=== PATIENT | female | born 1940 | race Caucasian/White ===

== ENCOUNTER 2016-11-12 16:20 | Emergency (ER) | payer MEDICARE, BC ==
--- NOTE | 2016-11-12 16:43 | Emergency Department Record ---
History of Present Illness - General Source: Patient Mode of Arrival: Wheelchair Limitations: No limitations - History of Present Illness Initial Comments: The patient is here due to a 4 hour hx of upper abdominal pain. The pain is sharp and stabbing and was associated with one episode of vomiting. There was no blood in the vomit and no recent black or bloody stools. The pain did not radiate to the back. The patient denies any hx of similar issues and her only past abdominal surgery is abdominal wall hernia surgery. 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 She was supposed to get a transfusion today here but due to antibodies in her blood she will not be able to receive any until tomorrow. MD Complaint: Abdominal pain Onset/Timin -: Hour(s) Location: Epigastric, LUQ, RUQ Severity: Moderate Quality: Sharp Consistency: Constant Improves With: Nothing Worsens With: Nothing Associated Symptoms: Denies other symptoms <Henry Segal - Last Filed: 11/12/16 19:13> <PABLITO TERAN - Last Filed: 11/12/16 19:33> - General Chief Complaint: Abdominal Pain Stated Complaint: ABD PAIN Time Seen by Provider: 11/12/16 16:42 - Related Data Home Medications Medication Instructions Recorded Confirmed Last Taken No Home Med [NO HOME MEDS] 10/03/16 11/12/16 Unknown Allergies Allergy/AdvReac Type Severity Reaction Status Date / Time meperidine HCl [From Demerol] Allergy HIVES Verified 09/04/16 11:18 mometasone furoate Allergy RASH Verified 09/04/16 11:18 [From Nasonex] Travel Screening - Travel/Exposure Within Last 30 Days Have you traveled within the last 30 days?: No - Travel/Exposure Within Last Year Have you traveled outside the [place] in the last year?: No - Additonal Travel Details Have you been exposed to anyone with a communicable illness?: No - Travel Symptoms Symptom Screening: None <Henry Segal - Last Filed: 11/12/16 19:13> Review of Systems Constitutional: Denies: Chills, Fever Eyes: Denies: Eye discharge ENT: Denies: Congestion Respiratory: Denies: Cough, Dyspnea <Henry Segal - Last Filed: 11/12/16 19:13> Past Medical History - SOCIAL HISTORY Smoking Status: Never smoker Alcohol Use: None Drug Use: None - RESPIRATORY Hx Respiratory Disorders: Yes Comment:: MDS - CARDIOVASCULAR Hx Cardio Disorders: No - NEURO Hx Neuro Disorders: No - GI Hx GI Disorders: No - Hx Genitourinary Disorders: No - ENDOCRINE Hx Endocrine Disorders: No - MUSCULOSKELETAL Hx Musculoskeletal Disorders: No - PSYCH Hx Psych Problems: No - HEMATOLOGY/ONCOLOGY Hx Hematology/Oncology Disorders: Yes Hx Anemia: Yes <Henry Segal - Last Filed: 11/12/16 19:13> Family Medical History Any Significant Family History?: Yes Family Hx Comment (NOT TO BE USED IN PLACE OF ITEMS BELOW): Mom had ALS Hx Cancer: Father, Children Hx Resp Disorders: Brother/Sister <Henry Segal - Last Filed: 11/12/16 19:13> Physical Exam - General General Appearance: Alert, Oriented x3, Cooperative, No acute distress - Head Head exam: Atraumatic, Normocephalic, Normal inspection - Eye Eye exam: Normal appearance, PERRL - Neck Neck exam: Normal inspection, Full ROM. negative: Tenderness - Respiratory Respiratory exam: Normal lung sounds bilaterally. negative: Respiratory distress - Cardiovascular Cardiovascular Exam: Regular rate, Normal rhythm, Normal heart sounds - GI/Abdominal GI/Abdominal exam: Soft, Tenderness (There is mild upper abominal tenderness but no guarding, rebound or pulsatile masses.). negative: Guarding, Rebound, Rigid - Extremities Extremities exam: Pedal edema - Neurological Neurological exam: Alert, Oriented X3. negative: Motor sensory deficit - Skin Skin exam: Pallor (chronic.) <Henyr Segal - Last Filed: 11/12/16 19:13> Course Vital Signs 11/12/16 16:30 Temperature 97.9 F Pulse Rate 94 H Respiratory 18 Rate Blood Pressure 155/78 Pulse Ox 97 - Reevaluation(s) Reevaluation #1: The patient is doing very well. She denies any new issues and denies any CP, SOB , or LULÚ. Her cardiac workup was normal with negative cardiac enzymes and an EKG that was WNL's. 11/12/16 18:03 Reevaluation #2: The patient is still having some upper abdominal pain. She denies any CP or SOB. While waiting for the CT results which are essentially neg for any acute process she went into New Onset A fib with RVR. The patient states she has had a hx of palpitations recently but no one ever called it Afib. Due to the multiple issues with her MDS and Afib and anemia she will be transferred [place] [facility] [place] more [place] tranfusion and cardiology consultation. 11/12/16 19:05 Reevaluation #3: 2nd EKG: rapid afib in 160's, Neg ischemic changes. 11/12/16 19:08 11/12/16 19:14 Reevaluation #4: The patient is doing very well at this time. I did discuss the case with Dr. Monique at [facility] and he does accept the patient in transfer. He will expedite the transfusion and obtain a Cardiology consultation due to the new onset Afib with RVR. 11/12/16 19:14 <Henry Segal - Last Filed: 11/12/16 19:13> Vital Signs 11/12/16 11/12/16 16:30 18:09 Temperature 97.9 F Pulse Rate 94 H Pulse Rate [ 89 Pulse Ox Probe] Respiratory 18 18 Rate Blood Pressure 155/78 Blood Pressure 155/75 [Right Arm] Pulse Ox 97 97 - Reevaluation(s) Reevaluation #1: Pt seen at the bedside for turnover She tolerated the Lopressor 5mg well but HR increasing slowly so Lopressor will be repeated [facility] [place]. The patient denies any needs at this time. Family updated that room was assigned. 11/12/16 19:31 <PABLITO TERAN - Last Filed: 11/12/16 19:33> Medical Decision Making - Data Complexity MDM Data: Labs Ordered and/or Reviewed, X-Ray Ordered and/or Reviewed, EKG Ordered and/or Reviewed - Lab Data Result diagrams: 11/12/16 17:02 11/12/16 17:02 - EKG Data -: EKG Interpreted by Me EKG: No Acute Changes, Normal EKG - Radiology Data Radiology results: Report reviewed (CT: No acute surgical pathology. Multiple chronic changes.) <Henry Segal - Last Filed: 11/12/16 19:13> - Lab Data Result diagrams: 11/12/16 17:02 11/12/16 17:02 Lab Results 11/12/16 11/12/16 11/12/16 Range/Units 17:02 17:02 17:02 WBC 4.3 (4.2-12.2) K/uL Corrected WBC 4.1 K/mm3 RBC 2.35 L (3.80-5.40) M/uL Hgb 6.6 L* (11.6-16.0) gm/dl Hct 21.4 L (35.0-47.0) % MCV 91.1 (81-97) fl MCH 28.0 (27-33) pg MCHC 30.8 L (32-36) g/dl RDW 16.4 H (11.5-14.5) % Plt Count 108 L (130-400) K/uL MPV 11.2 H (7.4-10.4) fl Neutrophils % 36.0 L (47-80) % Lymphocytes % 39.0 (16-45) % Monocytes % 25.0 H (0-9) % Eosinophils % Not Reportable Basophils % Not Reportable Nucleated RBCs 4.0 #/100WBC Sodium 133 L (136-145) mmol/L Potassium 4.0 (3.5-5.1) mmol/L Chloride 99 (98-107) mmol/L Carbon Dioxide 24.8 (22-30) mmol/L Anion Gap 9.2 (7-16) BUN 18 H (7-17) mg/dL Creatinine 1.0 (0.52-1.04) mg/dL Estimated GFR 57 ml/min Random Glucose 194 H (70-110) mg/dL Lactic Acid 1.5 (0.7-2.1) mmol/L Calcium 8.6 (8.5-10.1) mg/dL Total Bilirubin 0.63 (0.2-1.3) mg/dL Direct Bilirubin 0.0 (0-0.3) mg/dL AST 20 (14-36) U/L ALT 28 (9-52) U/L Alkaline Phosphatase 89 (38-126) U/L Creatine Kinase (30-135) U/L CK-MB (CK-2) (0-6) ug/L Troponin I (0.00-0.034) ng/mL Total Protein 7.5 (6.3-8.2) gm/dL Albumin 3.5 (3.5-5.0) gm/dL Lipase 46 (23-300) U/L 04/12/17 Range/Units 17:02 WBC (4.2-12.2) K/uL Corrected WBC K/mm3 RBC (3.80-5.40) M/uL Hgb (11.6-16.0) gm/dl Hct (35.0-47.0) % MCV (81-97) fl MCH (27-33) pg MCHC (32-36) g/dl RDW (11.5-14.5) % Plt Count (130-400) K/uL MPV (7.4-10.4) fl Neutrophils % (47-80) % Lymphocytes % (16-45) % Monocytes % (0-9) % Eosinophils % Basophils % Nucleated RBCs #/100WBC Sodium (136-145) mmol/L Potassium (3.5-5.1) mmol/L Chloride (98-107) mmol/L Carbon Dioxide (22-30) mmol/L Anion Gap (7-16) BUN (7-17) mg/dL Creatinine (0.52-1.04) mg/dL Estimated GFR ml/min Random Glucose (70-110) mg/dL Lactic Acid (0.7-2.1) mmol/L Calcium (8.5-10.1) mg/dL Total Bilirubin (0.2-1.3) mg/dL Direct Bilirubin (0-0.3) mg/dL AST (14-36) U/L ALT (9-52) U/L Alkaline Phosphatase (38-126) U/L Creatine Kinase < 20 L (30-135) U/L CK-MB (CK-2) 0.4 (0-6) ug/L Troponin I < 0.012 (0.00-0.034) ng/mL Total Protein (6.3-8.2) gm/dL Albumin (3.5-5.0) gm/dL Lipase (23-300) U/L <PABLITO TERAN - Last Filed: 11/12/16 19:33> Disposition Disposition: Transfer Transfer [place] [facility] For Transfer: Hematology Accepting Physician: Eneida Time Discussed w/Accepting Physician: 19:13 Time of Disposition: 19:13 <Henry Segal - Last Filed: 11/12/16 19:13> <PABLITO TERAN - Last Filed: 11/12/16 19:33> Clinical Impression: Atrial fibrillation with RVR Anemia Qualifiers: Anemia type: other cause Condition: (2) Stable Instructions: Abdominal Pain (ED), Atrial Fibrillation (ED) Forms: Patient Portal Access
[2016-11-12 17:07] LABS: HEMATOCRIT 21.4 % (35.0-47.0); MEAN CELL VOLUME 91.1 fl (81-97); MEAN CORPUSCULAR HGB CONC 30.8 g/dl (32-36); MEAN PLATELET VOLUME 11.2 fl (7.4-10.4); PLATELET COUNT 108 K/uL (130-400); RED BLOOD COUNT 2.35 M/uL (3.80-5.40); RED CELL DISTRIBUTION WIDTH 16.4 % (11.5-14.5); WHITE BLOOD COUNT W/O DIFF 4.3 K/uL (4.2-12.2)
[2016-11-12] MEDS: ONDANSETRON HCL IV 4 MG/2 ML VIAL IV ONE (17:12)
[2016-11-12 17:13] LABS: HEMOGLOBIN 6.6 gm/dl (11.6-16.0)
[2016-11-12] MEDS: HYDROMORPHONE HCL 1 MG/ML CPJ IVP ONE ×3 (17:13→19:08)
[2016-11-12] MEDS: 0.9 % SODIUM CHLORIDE 1,000 ML BAG IV ONE ×2 (17:14→19:09)
[2016-11-12 17:20] LABS: ALBUMIN 3.5 gm/dL (3.5-5.0); ANION GAP 9.2 (7-16); BILIRUBIN,TOTAL 0.63 mg/dL (0.2-1.3); CARBON DIOXIDE 24.8 mmol/L (22-30); TOTAL PROTEIN 7.5 gm/dL (6.3-8.2)
[2016-11-12 17:35] LABS: CREATINE PHOSPHOKINASE < 20 U/L (30-135)
[2016-11-12 17:47] LABS: CKMB 0.4 ug/L (0-6); TROPONIN I < 0.012 ng/mL (0.00-0.034)
[2016-11-12 17:50] LABS: CORRECTED WBC 4.1 K/mm3
[2016-11-12] MEDS: METOPROLOL TART 5 MG/5 ML VIAL IV ONE ×2 (19:09→19:34)
[2016-11-12] MEDS ORDERED: METOPROLOL TART 5 MG/5 ML VIAL IV ONE (19:32)
== END 2016-11-12 19:56 | disposition short-term general hospital (02) ==
LOC: ER 16:20
DX: I48.0 Paroxysmal atrial fibrillation (principal); D46.9 Myelodysplastic syndrome, unspecified; R11.11 Vomiting without nausea; R10.84 Generalized abdominal pain
CPT/HCPCS: 99285 ×2; 96376; 96374; 96375; 96361; 82550; 83605; 83690; 80076; 82553; 84484; 80048; 85027; 86900; 86901; 86850; 74177; 93005; 93010; Q9967; J2405; J1170; J7030